=== PATIENT | male | born 1980 | race Caucasian/White ===

== ENCOUNTER 2023-05-21 07:13 | Emergency (ER) | payer OTHER ==
[~2023-05-21] VITALS: Ht 170.2 cm; Wt 161.9 kg
[2023-05-21 07:59] LABS: BASOPHILS # (AUTO) 0.1 K/uL (0.0-0.2); BASOPHILS % (AUTO) 0.8 % (0.0-2.0); EOSINOPHILS # (AUTO) 0.1 K/uL (0.0-0.7); HEMATOCRIT 40 % (39-51); HEMOGLOBIN 12.8 g/dL (13.5-17.5); LYMPHOCYTES # (AUTO) 2.3 K/uL (0.8-4.8); LYMPHOCYTES % (AUTO) 32.1 % (20.0-44.0); MEAN CORPUSCULAR HEMOGLOBIN 28 PG (26.0-33.0); MEAN CORPUSCULAR HGB CONC 32 g/dl (31.0-36.0); MEAN CORPUSCULAR VOLUME 86 fL (80-96); MONOCYTES # (AUTO) 0.5 K/uL (0.1-1.30); NEUTROPHILS # (AUTO) 4.2 K/uL (1.8-8.9); NEUTROPHILS % (AUTO) 58.1 % (43.0-81.0); PLATELET COUNT (AUTO) 278 K/uL (150-450); RED BLOOD CELL COUNT(AUTO) 4.61 MIL/uL (4.5-6.0); RED CELL DISTRIBUTION WIDTH 15.2 % (11.5-15.0); WHITE BLOOD COUNT (AUTO) 7.2 K/uL (4.3-11.0)
[2023-05-21] MEDS ORDERED: predniSONE 20 MG TABLET ONE (08:01)
[2023-05-21] MEDS: predniSONE 20 MG TABLET PO ONE (08:10)
[2023-05-21] MEDS ORDERED: IPRATROPIUM NEB FS 0.5 MG/2.5 ML AMPUL.NEB ONE (08:19)
[2023-05-21] MEDS ORDERED: ALBUTEROL FS 2.5 MG/3 ML VIAL.NEB ONE (08:19)
[2023-05-21 08:20] LABS: ALANINE AMINOTRANSFERASE 42 U/L (12-78); ALBUMIN 3.3 g/dL (3.4-5.0); ALKALINE PHOSPHATASE 82 U/L (46-116); ASPARTATE AMINOTRANSFERASE 31 U/L (15-37); BILIRUBIN,DIRECT 0.1 mg/dL (0.0-0.2); BILIRUBIN,TOTAL 0.2 mg/dL (0.2-1.0); CALCIUM, SERUM 8.9 mg/dL (8.5-10.1); CARBON DIOXIDE 25 mmol/L (21-32); CHLORIDE 102 mmol/L (98-107); CREATININE 0.9 mg/dL (0.6-1.3); GLUCOSE 143 mg/dL (74-106); NT-PRO BNP 37 pg/mL (0-125); POTASSIUM 3.4 mmol/L (3.5-5.1); SODIUM SERUM 138 mmol/L (136-145); TOTAL PROTEIN, SERUM 7.7 g/dL (6.4-8.2); UREA NITROGEN, BLOOD 13 mg/dL (7-18)
[2023-05-21 08:22] LABS: INR 1.02 (0.91-1.10); PARTIAL THROMBOPLASTIN TIME 36.1 SEC (24.3-34.3); PROTHROMBIN TIME 10.8 SECS (9.2-11.1)
[2023-05-21] MEDS: IPRATROPIUM NEB FS 0.5 MG/2.5 ML AMPUL.NEB NEB ONE (08:24)
[2023-05-21] MEDS: ALBUTEROL FS 2.5 MG/3 ML VIAL.NEB CONTNEB ONE (08:24)
[2023-05-21 08:25] VITALS: O2SAT 92
[2023-05-21 08:41] VITALS: O2SAT 99
[2023-05-21] MEDS: FUROSEMIDE 20 MG/2 ML VIAL IV ONE (09:00)
[2023-05-21] MEDS ORDERED: FUROSEMIDE 20 MG/2 ML VIAL ONE (09:02)
[2023-05-21 12:44] VITALS: BP 141/89; TEMP 98.1; O2SAT 97
== END 2023-05-21 12:45 | disposition short-term general hospital (02) ==
LOC: ER 07:16
DX: I50.9 Heart failure, unspecified (principal); R06.00 Dyspnea, unspecified; F17.200 Nicotine dependence, unspecified, uncomplicated
CPT/HCPCS: 99291; 96374; 93005; 71045; 85025; 80048; 80076; 36415; 84484; 85730; 83880; 94640; J1940; J7512